=== PATIENT | male | born 1960 | race Caucasian/White ===

== ENCOUNTER 2017-06-20 17:53 | Emergency (ER) | payer OTHER ==
[~2017-06-20] VITALS: Ht 157.5 cm; Wt 71.0 kg
[~2017-06-20 17:53] MED LIST: ACET500C5 PO; AMIT50TA3 PO; ATEN100T PO; ATOR20TA38 PO; BACTDS PO; CEPH500C PO; HYD25 PO; HYDR-3720 PO; LANT3I SC; LEVE-5 PO; METO-448 PO; NOVO3I SC; ZOLP10TA PO
[2017-06-20 17:58] VITALS: Ht 157.5 cm; Wt 71.0 kg
--- NOTE | 2017-06-20 22:12 | ERA ---
ER Documentation Chief Complaint Date/Time DATE: 06/20/17 TIME: 22:11 Chief Complaint DIABETIC FOOT ULCER B/L FEET HPI The patient is a 56-year-old male, resenting to the ER because of bilateral heel ulcer, right heel for more than 2 weeks, left heel for more than 2 months. He has not seen a physician nor takes any antibiotic. He denies fever, chills , neck pain, chest pain, abdominal pain, vomiting,, diarrhea, dysuria. He does not smoke nor drink Past medical history: Hypertension, seizure, diabetes mellitus, dyslipidemia, diabetic neuropathy, peripheral vascular disease Past surgical history: Left leg vascular bypass in 2013 ROS All systems reviewed and are negative except as per history of present illness. Medications Home Meds Active Scripts Ibuprofen* (Motrin*) 600 Mg Tab, 600 MG PO Q6, #20 TAB Prov:ELLA WILD MD 06/20/17 Clindamycin Hcl* (Clindamycin Hcl*) 300 Mg Capsule, 300 MG PO QID for 10 Days, CAP Prov:ELLA WILD MD 06/20/17 Acetaminophen* (Tylophen*) 500 Mg Capsule, 1 CAP PO Q6H Y for PAIN AND OR ELEVATED TEMP, #20 CAP 0 Refills Prov:TIA DELANEY PA-C 04/05/16 Sulfamethoxazole-Trimethoprim* (Bactrim* DS) 800-160 Mg Tab, 1 TAB PO BID for 7 Days, #14 TAB 0 Refills Prov:TIA DELANEY PA-C 04/05/16 Cephalexin* (Cephalexin*) 500 Mg Capsule, 500 MG PO Q8 for 7 Days, #21 CAP 0 Refills Prov:TIA DELANEY PA-C 04/05/16 Insulin Glargine* (Lantus*) 100 Unit/Ml Soln, 30 UNIT SC QAM for 30 Days, 2 Refills Prov:ARICLAURENT SantosO M. 10/30/14 Metoprolol Tartrate* (Lopressor*) 25 Mg Tab, 25 MG PO Q12 for 30 Days, TAB 2 Refills Prov:ARICLAURENT SantosO M. 10/30/14 Levetiracetam* (Keppra*) 500 Mg Tab, 500 MG PO BID for 30 Days, 2 Refills Prov:LV CORBETT M. 10/30/14 Insulin Aspart* (Novolog Insulin Pen*) 100 Unit/Ml Soln, 6 UNIT SC WITH MEALS for 30 Days, 2 Refills Prov:LV CORBETT. 10/30/14 Hydrochlorothiazide* (Hydrochlorothiazide*) 25 Mg Tab, 25 MG PO DAILY@06 for 30 Days, TAB 2 Refills Prov:LV CORBETT. 10/30/14 Atorvastatin Calcium* (Atorvastatin Calcium*) 20 Mg Tab, 40 MG PO QHS for 30 Days, 2 Refills Prov:LV CORBETT. 10/30/14 Reported Medications Zolpidem Tartrate* (Ambien*) 10 Mg Tablet, 10 MG PO HS Y for INSOMNIA, TAB 03/02/15 Amitriptyline Hcl* (Amitriptyline Hcl*) 50 Mg Tablet, 50 MG PO HS, TAB 03/02/15 Atenolol* (Atenolol*) 100 Mg Tablet, 100 MG PO DAILY, TAB 03/02/15 Hydrocodone Bit-Acetaminophen* (Upper Jay*) Unknown Strength Tablet, PO Q4H Y for PAIN, TAB 03/02/15 Allergies Allergies: Coded Allergies: No Known Allergy (Unverified , 04/05/16) PMhx/Soc History of Surgery: Yes (BYPASS GRAFT LEFT LEG ) Anesthesia Reaction: No Hx Neurological Disorder: No Hx Respiratory Disorders: No Hx Cardiac Disorders: Yes (HTN) Hx Psychiatric Problems: No Hx Miscellaneous Medical Probl: Yes (DM, NEUROPATHY ) Hx Alcohol Use: No Hx Substance Use: No Hx Tobacco Use: No Physical Exam Vitals Vital Signs Date Time Temp Pulse Resp B/P Pulse Ox O2 Delivery O2 Flow Rate FiO2 06/20/17 22:26 98.1 85 20 181/80 100 Room Air 06/20/17 17:58 98.6 92 18 176/84 98 Physical Exam Const: No acute distress. Head: Atraumatic. Eyes: Normal Conjunctiva. ENT: Normal External Ears, Nose and Mouth. Neck: Full range of motion. No meningismus. Resp: Clear to auscultation bilaterally. Cardio: Regular rate and rhythm. Abd: Soft, non distended, normal bowel sounds, non tender. Skin: No petechiae or rashes. Back: No midline or flank tenderness. Ext: Chronic diabetic ulceration at bilateral heel, no discharge, no calf tenderness Neur: Awake and alert. No focal deficit Psych: Normal Mood and Affect. Results 24 hrs Current Medications Medications (Trade) Dose Ordered Sig/Norma Route PRN Reason Start Time Stop Time Status Last Admin Dose Admin Clindamycin HCl (Cleocin) 300 mg ONCE ONCE PO 06/20/17 22:30 06/20/17 22:31 DC 06/20/17 22:57 Acetaminophen/ Hydrocodone Bitart (Upper [place] (10/325)) 1 tab ONCE ONCE PO 06/20/17 22:30 06/20/17 22:31 DC 06/20/17 22:56 Ondansetron HCl (Zofran Odt) 4 mg ONCE STAT ODT 06/20/17 22:29 06/20/17 22:31 DC 06/20/17 22:55 Procedures/MDM MEDICAL MAKING DECISION: The patient is a 56-year-old male, presenting with bilateral heel diabetic ulcer. He was treated with clindamycin 600 mg p.o., [place] 10 mg p.o. and Zofran ODT. He is stable for outpatient follow-up The differential diagnoses considered include but are not limited to cellulitis , abscess, osteomyelitis, worsening peripheral vascular disease Departure Diagnosis: Primary Impression: Diabetic ulcer of both feet Condition: Good Comments He was discharged with clindamycin and Motrin I discussed the findings with the patient. I advised the patient to follow-up with the machine technician Dr. Sotomayor in about 1-2 days, sooner if needed and return if any concern. ELLA WILD MD Jun 20, 2017 22:08
[2017-06-20] MEDS ORDERED: ONDANSETRON (ODT) 4 MG TAB ODT STA (22:29)
[2017-06-20] MEDS ORDERED: CLINDAMYCIN 300 MG CAP PO ONE (22:30)
[2017-06-20] MEDS ORDERED: HYDROCODONE/APAP (10/325) TAB PO ONE (22:30)
[2017-06-20] MEDS ORDERED: CLIN-73 PO (22:34)
[2017-06-20] MEDS ORDERED: IBUP-1542 PO (22:34)
[2017-06-20 23:28] VITALS: BP 189/85; PULSE 88; RESP 20; TEMP 98.1
== END 2017-06-20 23:40 | disposition home or self-care (01) ==
LOC: E/R 17:53
DX: E11.621 Type 2 diabetes mellitus with foot ulcer (principal); L97.429 Non-pressure chronic ulcer of left heel and midfoot with unspecified severity; I10 Essential (primary) hypertension; Z79.4 Long term (current) use of insulin
CPT/HCPCS: 99283

== ENCOUNTER 2018-02-26 12:20 | Inpatient (IN) | END 2018-03-10 20:01 | disposition home health service (06) | DRG 628 ==

== ENCOUNTER 2018-04-16 16:30 | Inpatient (IN) | END 2018-04-28 19:55 | disposition home health service (06) | DRG 271 ==

== ENCOUNTER 2018-05-05 19:17 | Inpatient (IN) | END 2018-05-14 14:15 | disposition home health service (06) | DRG 603 ==

== ENCOUNTER 2018-08-12 14:54 | Day surgery (SDC) | END 2018-08-12 16:28 | disposition home or self-care (01) ==

== ENCOUNTER 2018-08-12 18:57 | Observation (INO) | END 2018-08-14 11:20 | disposition home or self-care (01) ==

== ENCOUNTER 2018-09-05 20:22 | Observation (INO) | END 2018-09-06 12:00 | disposition home or self-care (01) ==